=== PATIENT | male | born 1955 | race Caucasian/White ===

== ENCOUNTER 2017-04-09 07:54 | Observation (INO) | payer OTHER, MEDICARE ==
[2017-04-01 10:27] VITALS: BMI 48.0
--- NOTE | 2017-04-01 11:32 | PAT Medication Instructions ---
Service Date April 01, 2017. Current Home Medication List Allopurinol (Zyloprim *), 300 MG PO QAM Bupropion (Wellbutrin Sr), 200 MG PO BID Cholecalciferol (Vitamin D3), 3 TAB PO QAM Diazepam (Valium), 5 MG PO QID PRN for PRN Finasteride (Proscar), 5 MG PO HS Hydrocodone/Acetaminophen 10MG/325MG ([place] 10MG/325MG), 1 TAB PO Q6H PRN for Pain Lamotrigine (Lamictal), 150 MG PO BID Losartan Potassium (Cozaar *), 100 MG PO QAM Sertraline (Zoloft), 50 MG PO HS Sertraline (Zoloft), 100 MG PO QAM Tamsulosin HCl (Tamsulosin HCl), 2 CAP PO HS Warfarin Sod (Jantoven), 8 MG PO MWF Warfarin Sod (Jantoven), 7.5 MG PO T,R,SA,SUN [Lovenox], 200 UNITS SQ BID Medication Instructions For Your Scheduled Surgery Warfarin Sod (Jantoven), (per hematology recommendations) Lovenox, 200 UNITS SQ BID (per hematology recommendations) - Hold the following medications the morning of surgery: Losartan Potassium (Cozaar *), 100 MG PO QAM Cholecalciferol (Vitamin D3), 3 TAB PO QAM - Take the following medications the morning of surgery with a sip of water: Sertraline (Zoloft), 100 MG PO QAM Lamotrigine (Lamictal), 150 MG PO BID Hydrocodone/Acetaminophen 10MG/325MG ([place] 10MG/325MG), 1 TAB PO Q6H PRN for Pain (can take up to four hours prior to surgery if needed) Diazepam (Valium), 5 MG PO QID PRN for PRN Bupropion (Wellbutrin Sr), 200 MG PO BID Allopurinol (Zyloprim *), 300 MG PO QAM - Take the following medications as scheduled the night before surgery: Tamsulosin HCl (Tamsulosin HCl), 2 CAP PO HS Sertraline (Zoloft), 50 MG PO HS Lamotrigine (Lamictal), 150 MG PO BID Hydrocodone/Acetaminophen 10MG/325MG ([place] 10MG/325MG), 1 TAB PO Q6H PRN for Pain Finasteride (Proscar), 5 MG PO HS Diazepam (Valium), 5 MG PO QID PRN for PRN Bupropion (Wellbutrin Sr), 200 MG PO BID If you have any questions please call us at [phone] or [phone] ( [facility]) or [phone]
[2017-04-01 12:14] LABS: BASO % 0.4 %; BASO ABS # 0.03 K/uL (0-0.2); COMPLETE YES; HEMATOCRIT 34.9 % (42-52); IG% 0.1 %; LYMPH % 25.8 %; LYMPH ABS # 1.79 K/uL (1.2-3.4); MEAN CELL VOLUME 94.6 fL (80-100); MEAN CORPUSCULAR HEMOGLOBIN 29.8 pg (25-34); MEAN CORPUSCULAR HGB CONC 31.5 g/dl (32-36); MEAN PLATELET VOLUME 9.3 fL (7.4-10.4); MONO % 8.4 %; NEUT % 61.3 %; PLATELET COUNT 236 K/uL (130-400); RED BLOOD COUNT 3.69 M/uL (4.7-6.1); WHITE BLOOD COUNT 6.93 K/uL (4.8-10.8)
[2017-04-01 12:24] LABS: INR 1.3 (0.9-1.1); PARTIAL THROMBOPLASTIN RATIO 1.4
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
[~2017-04-09] VITALS: Ht 188 cm; Wt 170.6 kg
[~2017-04-09 07:54] MED LIST: ALL300 PO; BUPR200T2 PO; CLINDAMYCIN 600 MG/54 ML D5W IV SCH; CZR50 PO; DIAZ-165 PO; FINA5TAB PO; FLM4 PO; HYDR-4079 PO; LACTATED RINGER'S 1000ML 1,000 ML IV SCH; LAMO150T32 PO; LOVENOX SQ; SERT-234 PO; SERT50TA PO; VTMD1000 PO; WARF4TAB8 PO; WARF7.5T4 PO
[2017-04-09 08:28] VITALS: BP 103/60; PULSE 76; TEMP 36.8; O2SAT 98; Ht 188 cm; Wt 170.6 kg
--- NOTE | 2017-04-09 08:36 | History & Physical Bridge Note ---
H&P Re-Evaluation Bridge Note: I have examined the patient, reviewed the History & Physical and in the interval since the performance of the History & Physical I have noted the following changes of clinical significance: No changes noted
[2017-04-09 08:37] LABS: PROTHROMBIN TIME (PATIENT) 10.5 SECONDS (9.0-12.0)
[2017-04-09] MEDS ORDERED: MIDAZOLAM HCL 1 MG/ML 2ML VIAL ONE (09:52)
[2017-04-09] MEDS ORDERED: FENTANYL CITRATE INJ 50 MCG/1 ML 2 ML VIAL ONE (09:52)
[2017-04-09] MEDS ORDERED: ONDANSETRON INJ 2 MG/ML 2 ML VIAL IV PRN (13:45)
[2017-04-09] MEDS ORDERED: OXYCODONE/ACETAMINOPHEN 5-325 TAB PO PRN (13:45)
[2017-04-09] MEDS ORDERED: DIAZEPAM 5MG TAB PO PRN (14:00)
[2017-04-09 14:46] VITALS: BP 121/74; PULSE 71; TEMP 36.6; O2SAT 99
[2017-04-09 15:25] VITALS: BP 112/72; PULSE 73; TEMP 36.5; O2SAT 96
[2017-04-09] MEDS: SODIUM CHLORIDE 0.9% 1000ML 1,000 ML IV SCH (15:55)
[2017-04-09] MEDS: TAMSULOSIN HCL 0.4 MG CAP PO SCH (21:28)
[2017-04-09] MEDS: BuPROPion SR 100 MG TABCR PO SCH (21:29)
[2017-04-09] MEDS: SERTRALINE HCL 50 MG TAB PO SCH (21:29)
[2017-04-09] MEDS: FINASTERIDE 5 MG TAB PO SCH (21:29)
[2017-04-09] MEDS ORDERED: ACETAMINOPHEN 325 MG TAB PO PRN (21:45)
[2017-04-09] MEDS ORDERED: NURSING VERBAL MED ORDER ONE (21:45)
[2017-04-09] MEDS: ACETAMINOPHEN 325 MG TAB PO PRN (21:52)
[2017-04-09 22:52] VITALS: BP 117/71; PULSE 77; TEMP 36.7; O2SAT 95
[2017-04-10] VITALS (14 sets, daily range): BP systolic 93–140; BP diastolic 53–80; PULSE 73–84; TEMP 36.4–37.2; O2SAT 94–98
[2017-04-10 05:54] LABS: ANTI-Xa* 0.27 IU/ML (0 - <0.10); PROTHROMBIN TIME (PATIENT) 10.7 SECONDS (9.0-12.0)
[2017-04-10] MEDS ORDERED: CLINDAMYCIN IV 900 MG in DEXTROSE 5% ADD-VANTAGE 100ML 100 ML IV SCH (06:00)
[2017-04-10] MEDS ORDERED: LIDOCAINE HCL 2% 2 ML VIAL (20MG/ML) ONE (06:23)
[2017-04-10] MEDS ORDERED: ONDANSETRON INJ 2 MG/ML 2 ML VIAL ONE ×2 (06:23→07:23)
[2017-04-10] MEDS ORDERED: MIDAZOLAM HCL 1 MG/ML 2ML VIAL ONE (06:23)
[2017-04-10] MEDS ORDERED: PROPOFOL IV EMULSION 10 MG/ML 20 ML VIAL IV ONE ×2 (06:23→07:25)
[2017-04-10] MEDS ORDERED: FENTANYL CITRATE INJ 50 MCG/1 ML 2 ML VIAL ONE ×2 (06:23→07:36)
[2017-04-10] MEDS ORDERED: CLINDAMYCIN 600 MG/54 ML D5W IV ONE (06:45)
[2017-04-10] MEDS ORDERED: ROCURONIUM BROMIDE 10 MG/ML 5 ML VIAL ONE (06:51)
[2017-04-10] MEDS ORDERED: SUCCINYLCHOLINE CHLORIDE 20 MG/ML 10 ML VIAL IV ONE (06:51)
[2017-04-10] MEDS ORDERED: BACITRACIN 50000 UNIT VIAL ONE (06:53)
[2017-04-10] MEDS ORDERED: CLINDAMYCIN PHOS 150 MG/ML 2 ML VIAL ONE (07:11)
[2017-04-10] MEDS ORDERED: METOCLOPRAMIDE HCL INJ 5 MG/ML 2 ML VIAL ONE (07:23)
--- NOTE | 2017-04-10 07:48 | [facility] Post Operative Brief Note ---
Immediate Operative Summary Operative Date Apr 10, 2017. Pre-Operative Diagnosis hematoma trini medial knee lt Post-Operative Diagnosis same Procedure(s) Performed evacuation hematoma with i and d Surgeon kyle Topology Professor Surgeon(s) none Estimated Blood Loss 10cc Findings 20 x 15 x 6 hematoma non infected Specimens none Complication(s) None Disposition Recovery Room / PACU
[2017-04-10] MEDS ORDERED: ZOLPIDEM TARTRATE 5 MG TAB PO PRN (08:00)
[2017-04-10] MEDS ORDERED: SOD PHOSPHATE/SOD BIPHOSPHATE ENEMA 132 ML BTL PR PRN (08:00)
[2017-04-10] MEDS ORDERED: ATROPINE SULFATE 0.1 MG/ML 5ML SYR IV PRN (08:00)
[2017-04-10] MEDS ORDERED: ONDANSETRON INJ 2 MG/ML 2 ML VIAL IV PRN ×2 (08:00)
[2017-04-10] MEDS ORDERED: LABETALOL HCL IV 5 MG/ML 20ML IV PRN (08:00)
[2017-04-10] MEDS ORDERED: HYDROmorphone INJ 2 MG/ML SYR/VIAL IV PRN (08:00)
[2017-04-10] MEDS ORDERED: METOCLOPRAMIDE HCL INJ 5 MG/ML 2 ML VIAL IV PRN (08:00)
[2017-04-10] MEDS ORDERED: MAGNESIUM HYDROXIDE SUSP 30 ML UDC PO PRN (08:00)
[2017-04-10] MEDS ORDERED: ALUMINUM/MAGNESIUM/SIMETH (MAALOX MAX) 30 ML UDC PO PRN (08:00)
[2017-04-10] MEDS ORDERED: DiphenhydrAMINE HCL 50 MG/ML VIAL IV PRN (08:00)
[2017-04-10] MEDS ORDERED: BISACODYL 10 MG SUPP PR PRN (08:00)
[2017-04-10] MEDS ORDERED: OXYCODONE/ACETAMINOPHEN 5-325 TAB PO PRN (08:00)
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
--- NOTE | 2017-04-10 08:21 | Anesthesiology Progress Note ---
Anesthesia Post Op Note Date & Time Apr 10, 2017 at 08:21 Vital Signs Pain Intensity: 0 Vital Signs Past 12 Hours Date Time Temp Pulse Resp B/P (MAP) Pulse Ox O2 Delivery O2 Flow Rate FiO2 04/10/17 08:15 83 18 146/76 99 Mask 10 04/10/17 08:05 83 16 162/76 99 Mask 10 04/10/17 07:55 36.9 81 16 151/78 99 Mask 10 04/10/17 06:24 36.8 77 19 127/75 (92) 96 Room Air 04/09/17 23:59 Room Air 04/09/17 22:52 36.7 77 19 117/71 (86) 95 Room Air Notes Mental Status: alert / awake / arousable, participated in evaluation Pt Amnestic to Procedure: Yes Nausea / Vomiting: adequately controlled Pain: adequately controlled Airway Patency, RR, SpO2: stable & adequate BP & HR: stable & adequate Hydration State: stable & adequate Anesthetic Complications: no major complications apparent
[2017-04-10] MEDS ORDERED: IV FLUIDS COMPLETED PRN (08:30)
[2017-04-10] MEDS: BuPROPion SR 100 MG TABCR PO SCH ×2 (09:37→20:57)
[2017-04-10] MEDS: ALLOPURINOL 300 MG TAB PO SCH (09:38)
[2017-04-10] MEDS: CHOLECALCIFEROL 1000 INTER.UNIT TAB PO SCH (09:38)
[2017-04-10] MEDS: LOSARTAN POTASSIUM 50 MG TAB PO SCH (09:39)
[2017-04-10] MEDS: PANTOprazole SOD 40 MG TAB PO SCH (09:39)
[2017-04-10] MEDS: SERTRALINE HCL 100 MG TAB PO SCH (09:39)
[2017-04-10] MEDS: POTASSIUM CHLORIDE INJ 10 MEQ in SODIUM CHLORIDE 0.9% 1000ML 1,000 ML IV SCH ×2 (09:40→19:54)
[2017-04-10] MEDS: SODIUM CHLORIDE 0.9% 1000ML 1,000 ML IV SCH (09:40)
[2017-04-10] MEDS: FERROUS GLUCONATE 324 MG TAB PO SCH ×2 (09:50→17:57)
[2017-04-10] MEDS: MULTIVITAMIN TAB PO SCH (09:50)
[2017-04-10] MEDS: OXYCODONE HCL IR 5 MG TAB (IMMEDIATE RELEASE) PO PRN ×2 (13:04→22:30)
[2017-04-10] MEDS: ACETAMINOPHEN 325 MG TAB PO PRN (13:05)
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
[2017-04-10] MEDS ORDERED: HydrALAZINE HCL 20 MG/ML VIAL IV. PRN (14:00)
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
[2017-04-10] MEDS ORDERED: WARFARIN SOD 7.5 MG TAB PO SCH (16:00)
[2017-04-10] MEDS ORDERED: WARFARIN SOD 10 MG TAB PO SCH (16:00)
[2017-04-10 16:39] LABS: BUN/CREATININE RATIO 12.9 (10-20); CALCIUM 8.4 mg/dl (8.5-10.1); CREATININE 1.4 mg/dl (0.60-1.40); POTASSIUM 4.4 mmol/L (3.5-5.1)
[2017-04-10] MEDS: CLINDAMYCIN IV 600 MG in DEXTROSE 5% ADD-VANTAGE 50ML 50 ML IV SCH ×2 (16:40→23:49)
[2017-04-10] MEDS: ENOXAPARIN 40 MG/0.4 ML SYR SQ SCH (20:10)
[2017-04-10] MEDS: TAMSULOSIN HCL 0.4 MG CAP PO SCH (20:56)
[2017-04-10] MEDS: FINASTERIDE 5 MG TAB PO SCH (20:56)
[2017-04-10] MEDS: DOCUSATE SODIUM 100 MG CAP PO SCH (21:00)
[2017-04-10] MEDS ORDERED: SENNA 8.6 MG TAB PO SCH (21:00)
[2017-04-10] MEDS: SERTRALINE HCL 50 MG TAB PO SCH (21:07)
[2017-04-11 03:31] VITALS: BP 101/65; PULSE 88; TEMP 37.3; O2SAT 94
[2017-04-11] MEDS: POTASSIUM CHLORIDE INJ 10 MEQ in SODIUM CHLORIDE 0.9% 1000ML 1,000 ML IV SCH (05:17)
[2017-04-11] MEDS: OXYCODONE HCL IR 5 MG TAB (IMMEDIATE RELEASE) PO PRN ×2 (05:18→13:31)
[2017-04-11 06:58] LABS: BASO % 0.2 %; BASO ABS # 0.02 K/uL (0-0.2); COMPLETE YES; EOS % 3.6 %; HEMATOCRIT 32.1 % (42-52); IG% 0.1 %; LYMPH % 13.8 %; LYMPH ABS # 1.33 K/uL (1.2-3.4); MEAN CELL VOLUME 94.1 fL (80-100); MEAN CORPUSCULAR HGB CONC 30.8 g/dl (32-36); MEAN PLATELET VOLUME 8.9 fL (7.4-10.4); MONO % 8.8 %; NEUT % 73.5 %; PLATELET COUNT 233 K/uL (130-400); RED BLOOD COUNT 3.41 M/uL (4.7-6.1); WHITE BLOOD COUNT 9.63 K/uL (4.8-10.8)
[2017-04-11 07:28] LABS: BUN/CREATININE RATIO 14.1 (10-20); CALCIUM 8.2 mg/dl (8.5-10.1); CREATININE 1.4 mg/dl (0.60-1.40); POTASSIUM 4.7 mmol/L (3.5-5.1)
[2017-04-11] MEDS ORDERED: NURSING VERBAL MED ORDER ONE ×2 (07:45→14:15)
--- NOTE | 2017-04-11 07:51 | Orthopedic Progress Note ---
Orthopedic Progress Note Date of Service Apr 11, 2017. Subjective Post OP Day: 1 Reports: feeling well, Denies: complaints Additional Notes: Pt had a decent night. Minimal pain. Did not sleep as well but otherwise, no complaints. Objective calves soft nontender, N/V intact, A&O x3, toes mobile Dressings removed, Wound benign. ALL packing removed from wound on the LLE. Mild serous drainage expressed. Wound redressed with 4x4's, ABD's, Phani wrap. Date Time Temp Pulse Resp B/P (MAP) Pulse Ox O2 Delivery O2 Flow Rate FiO2 04/11/17 03:31 37.3 88 16 101/65 (77) 94 Room Air 04/10/17 23:38 Room Air 04/10/17 23:31 37.2 75 16 126/75 (92) 98 Room Air 04/10/17 20:26 36.9 76 16 93/57 (69) 97 Room Air 04/10/17 20:14 97 Room Air 04/10/17 15:42 74 95/54 (68) 04/10/17 15:33 101/53 (69) 04/10/17 15:30 Nasal Cannula 2.0 04/10/17 15:26 36.7 74 16 93/57 (69) 98 Nasal Cannula 2.0 04/10/17 12:00 36.7 73 18 123/69 (87) 98 Nasal Cannula 2.0 75 04/10/17 11:00 36.6 73 16 123/71 (88) 96 Nasal Cannula 2.0 74 04/10/17 10:51 97 Nasal Cannula 2.0 04/10/17 10:00 36.4 84 18 128/68 (88) 97 Nasal Cannula 2.0 80 04/10/17 09:57 04/10/17 09:30 36.7 82 16 125/80 (95) 97 Nasal Cannula 2.0 79 04/10/17 08:55 Nasal Cannula 2.0 04/10/17 08:55 36.9 82 14 140/72 (94) 94 Nasal Cannula 2.0 04/10/17 08:25 82 18 149/81 99 Nasal Cannula 2 04/10/17 08:15 83 18 146/76 99 Mask 10 04/10/17 08:05 83 16 162/76 99 Mask 10 04/10/17 07:55 36.9 81 16 151/78 99 Mask 10 Laboratory Results 24 Hours: Test 04/11/17 06:06 White Blood Count 9.63 K/uL Red Blood Count 3.41 M/uL Hemoglobin 9.9 g/dL Hematocrit 32.1 % Mean Corpuscular Volume 94.1 fL Mean Corpuscular Hemoglobin 29.0 pg Mean Corpuscular Hemoglobin Concent 30.8 g/dl Platelet Count 233 K/uL Mean Platelet Volume 8.9 fL Neutrophils (%) (Auto) 73.5 % Lymphocytes (%) (Auto) 13.8 % Monocytes (%) (Auto) 8.8 % Eosinophils (%) (Auto) 3.6 % Basophils (%) (Auto) 0.2 % Neutrophils # (Auto) 7.07 K/uL Lymphocytes # (Auto) 1.33 K/uL Monocytes # (Auto) 0.85 K/uL Eosinophils # (Auto) 0.35 K/uL Basophils # (Auto) 0.02 K/uL Prothromb Time International Ratio 1.0 Prothrombin Time 11.0 SECONDS Assessment & Plan Assessment: POD 1 s/p Evacuation Hematome LLE. Plan: Plan for PT today and likely discharge to home Plan for anticoagulation written by Dr Doimnguez in her Consult note. Inhouse Planning Pain Management: Oxy IR DVT Prophylaxis: TEDs, SCDs, Coumadin, Lovenox Discharge Planning Discharge Planning: home Pain Management: [place]
[2017-04-11 07:54] VITALS: BP 107/72; PULSE 80; TEMP 37.1; O2SAT 93
[2017-04-11] MEDS: ENOXAPARIN 40 MG/0.4 ML SYR SQ SCH (07:57)
[2017-04-11] MEDS: PANTOprazole SOD 40 MG TAB PO SCH (07:59)
[2017-04-11] MEDS: LOSARTAN POTASSIUM 50 MG TAB PO SCH (08:00)
[2017-04-11] MEDS ORDERED: RXC5 PO (08:06)
[2017-04-11] MEDS ORDERED: LVNIS40 SQ (08:06)
[2017-04-11] MEDS ORDERED: CMD75 PO (08:06)
--- NOTE | 2017-04-11 08:31 | Discharge Instructions ---
Discharge Instructions Date of Service Apr 11, 2017. Admission Reason for Admission: Left Knee Non-Traumatic Hematoma Discharge Discharge Diagnosis / Problem: Left Knee Hematoma Discharge Goals Goal(s): Decrease discomfort, Improve function Activity Recommendations Activity Limitations: per Instructions/Follow-up section Weightbearing Status: Left weightbearing (as tolerated) . Instructions / Follow-Up Instructions / Follow-Up Regular daily dressing changes as needed. Initially, you will be having a fair amount of drainage from the wound especially with activity. Use 4x4's, ABD's and willis wrap (wrapped snugly) Watch for any change in the drainage. Color or consistency (thin turning thicker). Watch for increased redness around the wound. Weight bear as tolerated on the left leg. Use crutches or a walker for now until Dr Juarez states otherwise. Limit your activity the first week. Then increase as tolerated. No showers unless would is completely covered with waterproof dressing. No tub baths. Do not soak the wound. Follow up with Dr Juarez in 7-10 days. Call for appointment. [phone] Below is the anticoagulation schedule that you should follow: Friday: Lovenox 40 mg AM (at hospital) and 40 mg in the PM. Coumadin 7.5 mg Friday: Arixtra 10 mg in AM at the time of next lovenox injection would be due and stop the Lovenox. 7.5 mg coumadin Friday: Arixtra 10 mg in AM and 7.5 mg coumadin Friday Arixtra 10 mg and INR check. Your MD in [place] will determine additional coumadin doses. Call her with INR result. Continue the Arixtra and Coumadin dose as above until you hear from your Physician in [place]. Current Hospital Diet Patient's current hospital diet: Regular Diet Discharge Diet Recommended Diet: Regular Diet Procedures Procedures Performed: evacuation hematoma with i and d Pending Studies Studies pending at discharge: no Medical Emergencies . Who to Call and When: Medical Emergencies: If at any time you feel your situation is an emergency, please call 911 immediately. . Non-Emergent Contact Non-Emergency issues call your: Surgeon Call Non-Emergent contact if: temperature is above 101.5, your pain is not controlled, your pain is worsening, wound has increased drainage, wound has increased redness . "Provider Documentation" section prepared by Pedro Lord. . VTE Core Measure Inpt VTE Proph given/why not?: Enoxaparin (Lovenox)SQ, Warfarin (Coumadin) [place] Drug Monitoring Program Search Results: patient reviewed within database, no issues identified
[2017-04-11] MEDS: DOCUSATE SODIUM 100 MG CAP PO SCH (08:35)
[2017-04-11] MEDS: FERROUS GLUCONATE 324 MG TAB PO SCH ×2 (08:35→13:31)
[2017-04-11] MEDS: CHOLECALCIFEROL 1000 INTER.UNIT TAB PO SCH (08:36)
[2017-04-11] MEDS: MULTIVITAMIN TAB PO SCH (08:36)
[2017-04-11] MEDS: ALLOPURINOL 300 MG TAB PO SCH (08:37)
[2017-04-11] MEDS: SERTRALINE HCL 100 MG TAB PO SCH (08:37)
[2017-04-11] MEDS: BuPROPion SR 100 MG TABCR PO SCH (09:12)
--- NOTE | 2017-04-11 10:12 | Hospitalist Progress Note ---
Hospitalist Progress Note Date of Service Apr 11, 2017. Subjective Pt evaluation today including: conversation w/ patient, conversation w/ family , physical exam, chart review, lab review, conversation w/ statistical consultant, review of inpatient medication list The patient reports feeling well today. He denies any significant pain. No chest pain or pressure. No difficulty breathing. No dizziness or lightheadedness. Tolerating his diet Additional Comments: 6 system review negative. Please see pertinent positives in the history of present illness section. Objective Vital Signs Date Time Temp Pulse Resp B/P (MAP) Pulse Ox O2 Delivery O2 Flow Rate FiO2 04/11/17 07:54 37.1 80 20 107/72 (84) 93 Room Air 04/11/17 03:31 37.3 88 16 101/65 (77) 94 Room Air 04/10/17 23:38 Room Air 04/10/17 23:31 37.2 75 16 126/75 (92) 98 Room Air 04/10/17 20:26 36.9 76 16 93/57 (69) 97 Room Air 04/10/17 20:14 97 Room Air 04/10/17 15:42 74 95/54 (68) 04/10/17 15:33 101/53 (69) 04/10/17 15:30 Nasal Cannula 2.0 04/10/17 15:26 36.7 74 16 93/57 (69) 98 Nasal Cannula 2.0 04/10/17 12:00 36.7 73 18 123/69 (87) 98 Nasal Cannula 2.0 75 04/10/17 11:00 36.6 73 16 123/71 (88) 96 Nasal Cannula 2.0 74 04/10/17 10:51 97 Nasal Cannula 2.0 Physical Exam General Appearance: no apparent distress Eyes: EOMI Neck: no JVD Respiratory/Chest: lungs clear Cardiovascular: regular rate, rhythm Abdomen: normal bowel sounds, non tender, soft, + pertinent finding (gas and stool present in the ileostomy) Extremities: + pertinent finding (no pitting edema noted in the right lower extremity. Brawny appearance to the left lower extremity-chronic. Phani bandage over the left knee.) Neurologic/Psychiatric: no motor/sensory deficits, oriented x 3 Skin: warm/dry Laboratory Results 04/11/17 06:06 Red Blood Count 3.41, Mean Corpuscular Volume 94.1, Mean Corpuscular Hemoglobin 29.0, Mean Corpuscular Hemoglobin Concent 30.8, Mean Platelet Volume 8.9, Neutrophils (%) (Auto) 73.5, Lymphocytes (%) (Auto) 13.8, Monocytes (%) (Auto) 8.8, Eosinophils (%) (Auto) 3.6, Basophils (%) (Auto) 0.2, Neutrophils # (Auto) 7.07, Lymphocytes # (Auto) 1.33, Monocytes # (Auto) 0.85, Eosinophils # (Auto) 0.35, Basophils # (Auto) 0.02 04/11/17 06:06 Test 04/11/17 06:06 White Blood Count 9.63 K/uL (4.8-10.8) Red Blood Count 3.41 M/uL (4.7-6.1) Hemoglobin 9.9 g/dL (14.0-18.0) Hematocrit 32.1 % (42-52) Mean Corpuscular Volume 94.1 fL (80-100) Mean Corpuscular Hemoglobin 29.0 pg (25-34) Mean Corpuscular Hemoglobin Concent 30.8 g/dl (32-36) Platelet Count 233 K/uL (130-400) Mean Platelet Volume 8.9 fL (7.4-10.4) Neutrophils (%) (Auto) 73.5 % Lymphocytes (%) (Auto) 13.8 % Monocytes (%) (Auto) 8.8 % Eosinophils (%) (Auto) 3.6 % Basophils (%) (Auto) 0.2 % Neutrophils # (Auto) 7.07 K/uL (1.4-6.5) Lymphocytes # (Auto) 1.33 K/uL (1.2-3.4) Monocytes # (Auto) 0.85 K/uL (0.11-0.59) Eosinophils # (Auto) 0.35 K/uL (0-0.5) Basophils # (Auto) 0.02 K/uL (0-0.2) RDW Standard Deviation 52.3 fL (36.4-46.3) RDW Coefficient of Variation 15.4 % (11.5-14.5) Immature Granulocyte % (Auto) 0.1 % Immature Granulocyte # (Auto) 0.01 K/uL (0.00-0.02) Prothrombin Time 11.0 SECONDS (9.0-12.0) Prothromb Time International Ratio 1.0 (0.9-1.1) Anion Gap 8.0 mmol/L (3-11) Est Creatinine Clear Calc Drug Dose 91.0 ml/min Estimated GFR () 62.0 Estimated GFR (Non- 53.5 BUN/Creatinine Ratio 14.1 (10-20) Calcium Level 8.2 mg/dl (8.5-10.1) Last 24 Hours Test 04/10/17 16:12 04/11/17 06:06 Sodium Level 144 mmol/L 142 mmol/L Potassium Level 4.4 mmol/L 4.7 mmol/L Chloride Level 112 mmol/L 110 mmol/L Carbon Dioxide Level 26 mmol/L 24 mmol/L Anion Gap 6.0 mmol/L 8.0 mmol/L Blood Urea Nitrogen 18 mg/dl 20 mg/dl Creatinine 1.40 mg/dl 1.40 mg/dl Est Creatinine Clear Calc Drug Dose 91.0 ml/min 91.0 ml/min Estimated GFR () 62.0 62.0 Estimated GFR (Non- 53.5 53.5 BUN/Creatinine Ratio 12.9 14.1 Random Glucose 87 mg/dl 96 mg/dl Calcium Level 8.4 mg/dl 8.2 mg/dl White Blood Count 9.63 K/uL Red Blood Count 3.41 M/uL Hemoglobin 9.9 g/dL Hematocrit 32.1 % Mean Corpuscular Volume 94.1 fL Mean Corpuscular Hemoglobin 29.0 pg Mean Corpuscular Hemoglobin Concent 30.8 g/dl Platelet Count 233 K/uL Mean Platelet Volume 8.9 fL Neutrophils (%) (Auto) 73.5 % Lymphocytes (%) (Auto) 13.8 % Monocytes (%) (Auto) 8.8 % Eosinophils (%) (Auto) 3.6 % Basophils (%) (Auto) 0.2 % Neutrophils # (Auto) 7.07 K/uL Lymphocytes # (Auto) 1.33 K/uL Monocytes # (Auto) 0.85 K/uL Eosinophils # (Auto) 0.35 K/uL Basophils # (Auto) 0.02 K/uL RDW Standard Deviation 52.3 fL RDW Coefficient of Variation 15.4 % Immature Granulocyte % (Auto) 0.1 % Immature Granulocyte # (Auto) 0.01 K/uL Prothrombin Time 11.0 SECONDS Prothromb Time International Ratio 1.0 Assessment and Plan 61-year-old male with a history of factor V Leiden on chronic anticoagulation was admitted to the hospital with a recurrent hematoma associated with his left TKA. He underwent an evacuation of the hematoma and washout 04/10 Anticoagulation is being addressed by Dr. Dominguez. Please see her note for details. Hypertension-BP slightly low -Recommend holding home dose of Cozaar today and tomorrow. Repeat BP with home health. If systolic greater than 110, please restart. This was discussed at length with the patient. Obstructive sleep apnea -Continue CPAP at night Bipolar disorder/anxiety-stable -Continue Zoloft, Lamictal and Valium as prescribed
[2017-04-11 12:05] VITALS: BP 110/71; PULSE 66; TEMP 36.9; O2SAT 94
[2017-04-11 12:20] VITALS: BP 110/71; PULSE 66; TEMP 36.9; O2SAT 94
--- NOTE | 2017-04-20 22:38 | DISCHARGE SUMMARY ---
DISCHARGE DIAGNOSIS: Hematoma, left anterior distal thigh. SECONDARY DIAGNOSES: Hypertension, sleep apnea, with CPAP use, anxiety, anemia with bruising, history of DVT with factor V Leiden deficiency. CONSULTS: Risa Thomas PA-C/Dr. Hina MD and Dr. Esha Dominguez. COMPLICATIONS: None. PROCEDURES: I&D, a left hematoma, by Dr. Juarez on 04/10/2017. BRIEF HISTORY: As dictated in history and physical. HOSPITAL SUMMARY: The patient was admitted on the above-noted date and underwent I&D and removal of hematoma by Dr. Juarez on 04/10/2017. Patient had a packing in place at that point in time and he tolerated the procedure well. By 04/11/2017, he was feeling well and had no complaints; states he had a decent night and minimal pain; did not sleep as well, but otherwise, he had no complaints. Calves were soft and nontender. Neurovascularly intact. Toes were mobile. Dressings were removed. Wound was benign. All of the iodoform gauze packing was removed from the wound and he had a mild serous drainage expressed. Wound was re-dressed with 4 x 4s, ABDs and an Phani wrap. Vital signs were stable. He was afebrile. Hemoglobin was 9.9 and INR was 1.0. The patient had been restarted on his Coumadin/Lovenox. The patient was being treated by a physician in [place](Dr Alavrez - Hematology) for his factor V Leiden deficiency. Dr. Dominguez had been consulted to discuss this with the patient and discuss plans for his switching to Arixtra. Dr. Dominguez spoke with Dr. Alvarez. After much discussion, a plan was formed for the next several days through the weekend, and the following Friday for his blood thinners. He was otherwise remaining stable and by 04/11/2017, he was ambulating, weightbearing as tolerated without any difficulty and pain was controlled and it was felt that he could be discharged to home. For further review, please see chart. LAB AND X-RAY DATA: As per chart. DISCHARGE INSTRUCTIONS: The patient was discharged to home in satisfactory condition on 04/11/2017. DIET: Regular. ACTIVITY: Weightbearing as tolerated, left lower extremity. INSTRUCTIONS: Regular daily dressing changes as needed. Watch for change in drainage, watch for increased redness around the wound, weightbear as tolerated. Use crutches or walker for now until Dr. Juarez states otherwise, limit activity the first week, then increase as tolerated. No showers, unless wound is completely covered with waterproof dressing. No tub baths. Do not soak the wound. Follow up with Dr. Juarez in 7-10 days. The patient to call for appointment, anticoagulation schedule that was confirmed with Dr. Dominguez and Dr. Garcia in [place], noted and patient to call Dr. Garcia on Friday after having an INR performed. DISCHARGE MEDICATIONS: Oxycodone 5-10 mg p.o. q. 4 hours p.r.n., warfarin 7.5 mg p.o. daily, enoxaparin was initially on the discharge medication list and was no longer needed just prior to discharge. Resume home medications as listed. Stop taking the Lovenox. Stop taking [place] and currently, stop taking the 8 mg of warfarin Friday, Friday, Friday. He will only be taking 7.5 mg p.o. daily, until otherwise notified by Dr. Garcia and again, please follow the instructions noted on the discharge instructions for your Arixtra and Coumadin as per Dr. Garcia. [facility]
== END 2017-04-11 14:48 | disposition home health service (06) ==
LOC: C.ACU 07:54 → C.MSN 09:00 → ENRESERV 14:19
PROVIDERS: ADMIT Orthopaedic Surgery; ATTEND Orthopaedic Surgery
DX: S70.12XA Contusion of left thigh, initial encounter (principal); W28.XXXA Contact with powered lawn mower, initial encounter; Y93.H2 Activity, gardening and landscaping; I10 Essential (primary) hypertension; G47.33 Obstructive sleep apnea (adult) (pediatric); D68.51 Activated protein C resistance; F31.9 Bipolar disorder, unspecified; F41.9 Anxiety disorder, unspecified; Z86.718 Personal history of other venous thrombosis and embolism; Z79.01 Long term (current) use of anticoagulants; Z79.899 Other long term (current) drug therapy; Z96.653 Presence of artificial knee joint, bilateral